=== PATIENT | male | born 1955 | race Caucasian/White ===

== ENCOUNTER 2020-02-04 17:18 | Emergency (ER) | payer BC, MEDICARE, SELFPAY ==
[2020-02-04] VITALS (8 sets, daily range): BP systolic 107–119; BP diastolic 68–75; PULSE 53–65; RESP 20; TEMP 37.2; O2SAT 96–99
--- NOTE | ~2020-02-04 | XR_ITS ---
EXAMINATION: XR chest 2V DATE: 02/04/2020 18:19 INDICATION: Transient alteration of awareness, hypertension TECHNIQUE: PA and lateral views of the chest are obtained. COMPARISON: None available FINDINGS: The lungs are free of acute opacities. There is no pleural effusion or pneumothorax. The ca rdiomediastinal silhouette is normal. There is moderate thoracic spondylosis. IMPRESSION: 1. No acute cardiopulmonary abnormality. Reviewed, dictated and finalized at location A.
--- NOTE | 2020-02-04 17:49 | ECG_ITS ---
Measurements Intervals [place] Rate: 63 P: 91 FL: 177 QRS: -14 QRSD: 126 T: 31 QT: 437 QTc: 448 Interpretive Statements SINUS RHYTHM INTRAVENTRICULAR CONDUCTION DELAY BORDERLINE R WAVE PROGRESSION, ANTERIOR LEADS BASELINE ARTIFACT- I, III, AVL, V5 BORDERLINE ECG Electronically Signed On 02-04-2020 18:57:22 CDT by Aric Schrader D.O.
--- NOTE | 2020-02-04 18:32 | ED.SYNCOPE ---
HPI - Syncope General Chief Complaint: Syncope <Suzanne Daniel PA-C - Last Filed: 02/04/20 20:56> Stated Complaint: syncope ? seizure <CAREY Nicole Last Filed: 02/04/20 20:56> Time Seen by Provider: 02/04/20 18:03 <Suzanne Daniel PA-C - Last Filed: 02/04/20 20:56> Source: patient and family <CAREY iNcole Last Filed: 02/04/20 20:56> Mode of arrival: wheelchair <CAREY Nicole Last Filed: 02/04/20 20:56> Limitations: no limitations <CAREY Nicole Last Filed: 02/04/20 20:56> History of Present Illness HPI narrative: This is a 64 year old male that presents to the ER for syncopal episode today. Reports he had just gotten up from his chair and walked into the kitchen to get a drink. Reports he remembers feeling lightheaded and everything went black. His came in and sat him up. Reports his eyes rolled back in his head and his arms were shaking a little bit. Reports he soon came back to consciousness after. Reports he is currently being treated for a urinary tract infection by Dr. Teran. Denies chest pain, rotations, or shortness of breath. <Suzanne Daniel PA-C - Last Filed: 02/04/20 20:56> Related Data Home Medications: Home Medications Medication Instructions Recorded Confirmed amlodipine 10 mg tablet 10 mg PO DAILY 08/26/19 atorvastatin 80 mg tablet 80 mg PO DAILY 08/26/19 duloxetine 60 mg capsule,delayed 60 mg PO DAILY 08/26/19 release hydrochlorothiazide 12.5 mg capsule 12.5 mg PO DAILY 08/26/19 metaxalone 800 mg tablet 800 mg PO TID 08/26/19 oxycodone-acetaminophen 10 mg-325 1 tablet PO BID PRN tablet 08/26/19 mg tablet pregabalin 150 mg capsule 150 mg PO BID 08/26/19 telmisartan 80 mg tablet 80 mg PO DAILY 08/26/19 oxycodone myristate [Xtampza ER] 27 mg PO BID 02/04/20 <Suzanne Daniel PA-C - Last Filed: 02/04/20 20:56> Allergies/Adverse Reactions: Allergies Allergy/AdvReac Type Severity Reaction Status Date / Time No Known Allergies Allergy Mild Verified 02/04/20 17:40 <Suzanne Daniel PA-C - Last Filed: 02/04/20 20:56> Review of Systems Review of Systems: Narrative: CONSTITUTIONAL: Denies fever CARDIOVASCULAR: Denies chest pain RESPIRATORY: Denies dyspnea. GASTROINTESTINAL: Denies abdominal pain, nausea, vomiting GENITOURINARY: Reports dysuria. Denies hematuria. MUSCULOSKELETAL: Reports back pain. Denies joint pain, or myalgia. NEUROLOGIC: Denies numbness, or weakness. <Suzanne Daniel PA-C - Last Filed: 02/04/20 20:56> All systems reviewed & are unremarkable except as noted in HPI and below <Suzanne Daniel PA-C - Last Filed: 02/04/20 20:56> PMFSH Past Medical History Medical History: Medical History (Updated 02/04/20 @ 20:55 by Suzanne Daneil PA-C) Benign essential hypertension Chronic low back pain Mixed hyperlipidemia <Suzanne Daniel PA-C - Last Filed: 02/04/20 20:56> Social History Social History: Social History Smoking status: Never smoker Alcohol intake: never Gender identity (if verbalized by the patient): Male <Suzanne Daniel PA-C - Last Filed: 02/04/20 20:56> Exam Narrative: Exam Narrative: GENERAL: Well-appearing, well-nourished, and in no acute distress. HEAD: Normocephalic, atraumatic. EYES: PERRLA and EOMI. ENT: Nares clear, no rhinorrhea or epistaxis. Mucous membranes moist. Oropharynx without tonsillar hypertrophy exudate or other lesions. Bilateral TMs pearly way non-bulging NECK: Supple. No adenopathy or masses. No midline spinal tenderness CHEST: Clear to auscultation. No respiratory distress. No wheezes rales or rhonchi HEART: Regular rate and rhythm. No murmur heard. Normal peripheral pulses. BACK: No midline spinal tenderness EXTREMITIES: Normal range of motion. No edema. Strength equal in bilateral upper and lower extremities (5/5) SKIN: Warm, dry, no rash. NEURO:
[2020-02-04 18:34] LABS: Basophils Percent Auto 0.3 % (0.2-1.2); Eosinophils Absolute Auto 0.1 K/mm3 (0-0.3); Eosinophils Percent Auto 1.2 % (0-4.4); Hematocrit 42.3 % (42.0-52.0); Hemoglobin 13.8 g/dL (14.0-18.0); Immature Granulocyte Absolute 0.04 K/mm3 (0.00-0.031); Immature Granulocyte Percent A 0.4 % (0-0.5); Immature Platelet Fraction Pct 5.8 % (0.9-11.2); Lymphocytes Absolute Auto 0.74 K/mm3 (0.9-3.2); Mean Corpuscular HGB Conc 32.6 g/dl (32-36); Mean Corpuscular Hemoglobin 30.1 pg (26-34); Mean Corpuscular Volume 92.2 fl (80-100); Mean Platelet Volume 11.4 fl (7.4-10.4); Monocytes Absolute Auto 0.7 K/mm3 (0.1-0.6); Monocytes Percent Auto 6.6 % (2.6-8.5); Neutrophils Absolute Auto 8.9 K/mm3 (1.3-6.7); Neutrophils Percent Auto 84.5 % (45.5-73.1); Platelet Count Result 141 k/mm3 (150-375); Red Blood Count 4.59 M/mm3 (4.6-6.20); Red Cell Distribution Width 12.5 % (11.5-14.5); White Blood Count 10.5 K/mm3 (4.5-10.0)
[2020-02-04 18:44] LABS: Blood Urea Nitrogen 21 mg/dL (9-20); Calcium 8.9 mg/dL (8.4-10.2); Carbon Dioxide 31 mmol/L (22-30); Chloride 101 mmol/L (98-107); Estimated CRCL calculation 86 ml/min; Estimated Glomerular Filt Rate > 60; Glucose 113 mg/dL (75-110); Potassium 3.6 mmol/L (3.4-5.0); Sodium 137 mmol/L (137-145)
[2020-02-04 18:56] LABS: Troponin I < 0.012 ng/mL (0.000-0.034)
[2020-02-04] MEDS: SODIUM CHLORIDE 0.9% IV 1,000 ML 999 ML IV CONT (19:29)
[2020-02-04 19:47] LABS: Add Urine Microscopic? YES; Appearance Urine Clear (Clear); Bilirubin Urine Negative (Negative); Blood Urine Negative (Negative); Color Urine Yellow (Yellow); Glucose Urine UA Negative (Negative); Ketones Urine Negative (Negative); Leukocyte Esterase Ur Trace LEU/UL (Negative); Mucus Urine Rare /lpf; Nitrate Urine Negative (Negative); Protein Urine 1+ mg/dL (Negative); RBC Urine 0-2 /hpf (0-2); Specific Grav Ur 1.018 (1.001-1.035); Squamous Epithelial Cell Urine Rare /hpf (Few); Urobilinogen Urine Negative mg/dL (<2.0); WBC Urine 0-3 /hpf
== END 2020-02-04 21:42 | disposition home or self-care (01) ==
PROVIDERS: Physician Assistant; Emergency Provider Emergency Medicine; PCP Family Medicine
DX: R55 Syncope and collapse (principal); I10 Essential (primary) hypertension; M54.5 Low back pain; G89.29 Other chronic pain; E78.5 Hyperlipidemia, unspecified
CPT/HCPCS: 36415; 71046; 80048; 81001; 84484; 85025; 85055; 93005; 96360; 96361; 99284; J7030

== ENCOUNTER 2020-06-22 02:35 | Outpatient (CLI) | payer BC, MEDICARE, SELFPAY ==
[2020-06-22 21:22] LABS: SARS-CoV-2 RNA PCR Negative
== END 2020-06-22 02:36 | disposition home or self-care (01) ==
LOC: ANHCOVIDDT 02:36
PROVIDERS: PCP Family Medicine; Visit Provider Internal Medicine Gastroenterology
DX: Z01.818 Encounter for other preprocedural examination (principal); Z20.828 Contact with and (suspected) exposure to other viral communicable diseases
CPT/HCPCS: 87635; C9803; U0003

== ENCOUNTER 2020-06-25 00:30 | Day surgery (SDC) | payer BC, MEDICARE, SELFPAY ==
[2020-06-18 14:51] VITALS: BMI 29.7
[2020-06-25 11:53] VITALS: BP 136/79; PULSE 56; RESP 14; TEMP 36.6; O2SAT 98; BMI 30.1
[2020-06-25] MEDS: LACTATED RINGERS 1,000 ML 150 ML IV CONT (12:03)
--- NOTE | 2020-06-25 12:37 | WPDANESEPPF ---
Anes - Initial Pre Proc Eval Procedure: Operation Date: 06/25/20 13:00 Proposed Procedures p Esophagogastroduodenoscopy - Aniket Long DO Date/Time: 06/25/20 12:37 Surgeon: Aniket Long DO Pre Op Diagnosis: Nausea,Weight Loss, Anorexia Patient Data Age: 65 Gender: M Height: 6 ft 3 in Weight: 109.3 kg Last Vital Signs Temp 97.9 F 06/25/20 11:53 Pulse 56 L 06/25/20 11:53 Resp 14 06/25/20 11:53 BP 136/79 06/25/20 11:53 Pulse Ox 98 06/25/20 11:53 Allergies Allergy/AdvReac Type Severity Reaction Status Date / Time No Known Allergies Allergy Mild Verified 06/25/20 11:51 Home Medications Medication Instructions Recorded Confirmed Type atorvastatin 80 mg tablet 80 mg PO DAILY 08/26/19 06/25/20 History duloxetine 60 mg capsule,delayed 80 mg PO DAILY 08/26/19 06/25/20 History release metaxalone 800 mg tablet 800 mg PO TID 08/26/19 06/25/20 History oxycodone-acetaminophen 10 mg-325 1 tablet PO BID PRN tablet 08/26/19 06/25/20 History mg tablet oxycodone myristate [Xtampza ER] 7.5 mg PO QID 02/04/20 06/25/20 History amlodipine 10 mg tablet 5 mg PO DAILY tablet 05/19/20 06/25/20 History pregabalin 150 mg capsule 150 mg PO BID cap 05/19/20 06/25/20 History tamsulosin 0.4 mg capsule 0.4 mg PO DAILY 05/19/20 06/25/20 History mirabegron [Myrbetriq] 25 mg PO DAILY 06/18/20 06/25/20 History omeprazole 40 mg PO BID 06/18/20 06/25/20 History Patient hx anesthesia problems: none Family hx anesthesia problems: none PMFSH Past Medical History Medical History Benign essential hypertension BMI 31.0-31.9,adult Chronic low back pain Mixed hyperlipidemia Family History Family History Sibling Family history of schizophrenia Family history of suicide Father Hypertension Family history of diabetes mellitus in first degree relative Family history of heart disease in male family member before age 55 Family history of type 2 diabetes mellitus Diabetes mellitus Mother Hypertension Social History Social History Years smoked: 1 Smoking status: Former smoker Alcohol intake: never Substance use type: marijuana Living arrangements: with family Gender identity (if verbalized by the patient): Male Spiritual care concerns: No Anes - Eval Final PreProcedure Day of Procedure 06/25/20 12:37 Patient weight: overweight Heart: regular rate and rhythm Lungs: clear to auscultation Airway: Mallampati scale class II Neurological: alert and oriented Last oral intake: >/= 8 hours ASA classification: III Emergent: no Anesthetic plan: proceed Anesthesia type and monitoring: general GIVS and standard monitoring Informed Consent: The patient's anesthetic plan and its attendant risks and benefits were discussed with the patient/family/POA. Questions were solicited and answers provided to the satisfaction of the patient/family/POA.
--- NOTE | 2020-06-25 12:43 | PM.IMHP ---
H&P: HPI History of Present Illness Date/Time: 06/25/20 12:43 Chief complaint: Nausea,Weight Loss, Anorexia Narrative: Reason for visit EGD. This very pleasant gentleman seen in consultation the request of the primary physician. Impression: Here of very pleasant gentleman with some mild nausea, anorexia, early satiety and weight loss underlying peptic ulcer disease in neoplastic disease should be excluded. CAD status post stent placement x1. Complex regional pain syndrome. BPH. HTN. HLD. Recommendation: EGD Colonoscopy scheduled. History: Very pleasant gentleman is being evaluated for 7 months of 35 lb weight loss. He has anorexia and early satiety. He denies any vomiting, indigestion or heartburn. He has had omeprazole to settle his stomach. He also takes medical cannabis regularly for the last year. Denies any constipation, diarrhea, hematochezia, melena or acholic stools. He is here for EGD. Physical examination: General: very pleasant patient in no acute distress. HEENT: Head was normocephalic sclerae is clear mouth without masses neck was supple. Heart: Rate rhythm regular without S3 or S4. Lungs: CTA. Abdomen: Soft with no guarding or rigidity. Bowel sounds were active. Neurologic: Cranial nerves 2 through 12 intact. No focal defects. No clonus. Musculoskeletal system: Revealed no joint tenderness or swelling no muscle atrophy. Extremities: Reveal no significant edema. Skin: Warm and dry with normal turgor. Mental status: intact. Patient is alert and oriented. Review of Systems Review of Systems: All systems reviewed & are unremarkable except as noted in HPI and below PMFSH Past Medical History Medical History Benign essential hypertension BMI 31.0-31.9,adult Chronic low back pain Mixed hyperlipidemia Family History Family History Sibling Family history of schizophrenia Family history of suicide Father Hypertension Family history of diabetes mellitus in first degree relative Family history of heart disease in male family member before age 55 Family history of type 2 diabetes mellitus Diabetes mellitus Mother Hypertension Social History Social History Years smoked: 1 Smoking status: Former smoker Alcohol intake: never Substance use type: marijuana Living arrangements: with family Gender identity (if verbalized by the patient): Male Spiritual care concerns: No Meds Home Medications and Allergies Home Medications Medication Instructions Recorded Confirmed Type atorvastatin 80 mg tablet 80 mg PO DAILY 08/26/19 06/25/20 History duloxetine 60 mg capsule,delayed 80 mg PO DAILY 08/26/19 06/25/20 History release metaxalone 800 mg tablet 800 mg PO TID 08/26/19 06/25/20 History oxycodone-acetaminophen 10 mg-325 1 tablet PO BID PRN tablet 08/26/19 06/25/20 History mg tablet oxycodone myristate [Xtampza ER] 7.5 mg PO QID 02/04/20 06/25/20 History amlodipine 10 mg tablet 5 mg PO DAILY tablet 05/19/20 06/25/20 History pregabalin 150 mg capsule 150 mg PO BID cap 05/19/20 06/25/20 History tamsulosin 0.4 mg capsule 0.4 mg PO DAILY 05/19/20 06/25/20 History mirabegron [Myrbetriq] 25 mg PO DAILY 06/18/20 06/25/20 History omeprazole 40 mg PO BID 06/18/20 06/25/20 History Allergies Allergy/AdvReac Type Severity Reaction Status Date / Time No Known Allergies Allergy Mild Verified 06/25/20 11:51 Vital Signs Vital Signs - 24 hr 06/25/20 11:53 Temperature 36.6 C Pulse Rate 56 L Respiratory Rate 14 Blood Pressure 136/79 Pulse Oximetry 98
[2020-06-25 13:00] VITALS: BP 114/76; PULSE 56; RESP 17; O2SAT 98
[2020-06-25 13:10] VITALS: BP 130/80; PULSE 57; RESP 21; O2SAT 100
[2020-06-25 13:20] VITALS: BP 152/83; PULSE 53; RESP 19; O2SAT 98
== END 2020-06-25 13:29 | disposition home or self-care (01) ==
PROVIDERS: PCP Family Medicine; Visit Provider Internal Medicine Gastroenterology
PROC: 0DJ08ZZ Inspection of Upper Intestinal Tract, Via Natural or Artificial Opening Endoscopic (ICD-10-PCS; CPT 43235; principal; 2020-06-25 13:00)
DX: R11.0 Nausea (principal); R63.0 Anorexia; R68.81 Early satiety; R63.4 Abnormal weight loss; K31.7 Polyp of stomach and duodenum; K20.90 Esophagitis, unspecified without bleeding; I10 Essential (primary) hypertension; E78.2 Mixed hyperlipidemia; Z87.891 Personal history of nicotine dependence
CPT/HCPCS: 43239; 87081; 88305; J2704; J7120

== ENCOUNTER 2020-07-07 02:33 | Outpatient (CLI) | payer BC, MEDICARE, SELFPAY ==
[2020-07-07 19:16] LABS: SARS-CoV-2 RNA PCR Negative
== END 2020-07-07 02:34 | disposition home or self-care (01) ==
LOC: ANHCOVIDDT 02:33
PROVIDERS: PCP Family Medicine; Visit Provider Internal Medicine Gastroenterology
DX: Z01.818 Encounter for other preprocedural examination (principal); Z20.828 Contact with and (suspected) exposure to other viral communicable diseases
CPT/HCPCS: 87635; C9803; U0003

== ENCOUNTER 2020-07-09 00:54 | Day surgery (SDC) | payer BC, MEDICARE, SELFPAY ==
[2020-07-01 11:35] VITALS: BMI 30.1
[2020-07-09 14:40] VITALS: BP 169/101; PULSE 80; RESP 16; TEMP 36.7; O2SAT 96
[2020-07-09] MEDS: LACTATED RINGERS 1,000 ML 150 ML IV CONT (14:47)
--- NOTE | 2020-07-09 15:00 | WPDANESEPPF ---
Anes - Initial Pre Proc Eval Procedure: Operation Date: 07/09/20 11:30 Proposed Procedures p Colonoscopy - Aamir Ngo MD Date/Time: 07/09/20 15:00 Surgeon: Aamir Ngo MD Pre Op Diagnosis: Weight Loss Patient Data Age: 65 Gender: M Height: 6 ft 3 in Weight: 107.4 kg Last Vital Signs Temp 98.0 F 07/09/20 14:40 Pulse 80 07/09/20 14:40 Resp 16 07/09/20 14:40 BP 169/101 H 07/09/20 14:40 Pulse Ox 96 07/09/20 14:40 Allergies Allergy/AdvReac Type Severity Reaction Status Date / Time No Known Allergies Allergy Mild Verified 07/01/20 11:34 Home Medications Medication Instructions Recorded Confirmed Type atorvastatin 80 mg tablet 80 mg PO DAILY 08/26/19 07/01/20 History duloxetine 60 mg capsule,delayed 80 mg PO DAILY 08/26/19 07/01/20 History release metaxalone 800 mg tablet 800 mg PO TID 08/26/19 07/01/20 History oxycodone-acetaminophen 10 mg-325 1 tablet PO BID PRN tablet 08/26/19 07/01/20 History mg tablet oxycodone myristate [Xtampza ER] 7.5 mg PO QID 02/04/20 07/01/20 History amlodipine 10 mg tablet 5 mg PO DAILY tablet 05/19/20 07/01/20 History pregabalin 150 mg capsule 150 mg PO BID cap 05/19/20 07/01/20 History tamsulosin 0.4 mg capsule 0.4 mg PO DAILY 05/19/20 07/01/20 History mirabegron [Myrbetriq] 25 mg PO DAILY 06/18/20 07/01/20 History omeprazole 40 mg PO BID 06/18/20 07/01/20 History Patient hx anesthesia problems: none Family hx anesthesia problems: none PMFSH Past Medical History Medical History Benign essential hypertension BMI 31.0-31.9,adult Chronic low back pain Mixed hyperlipidemia Family History Family History Sibling Family history of schizophrenia Family history of suicide Father Hypertension Family history of diabetes mellitus in first degree relative Family history of heart disease in male family member before age 55 Family history of type 2 diabetes mellitus Diabetes mellitus Mother Hypertension Social History Social History Years smoked: 1 Smoking status: Former smoker Tobacco type: cigarettes Alcohol intake: never Substance use: current Substance use type: marijuana Living arrangements: with family Gender identity (if verbalized by the patient): Male Spiritual care concerns: No Anes - Eval Final PreProcedure Day of Procedure 07/09/20 15:00 Patient weight: normal Heart: regular rate and rhythm Lungs: clear to auscultation Airway: Mallampati scale class II Neurological: alert and oriented Last oral intake: >/= 8 hours ASA classification: III Emergent: no Anesthetic plan: proceed Anesthesia type and monitoring: general GIVS and standard monitoring Informed Consent: The patient's anesthetic plan and its attendant risks and benefits were discussed with the patient/family/POA. Questions were solicited and answers provided to the satisfaction of the patient/family/POA.
--- NOTE | 2020-07-09 15:26 | PM.HPGS ---
History of Present Illness History of Present Illness Consent: Risks, benefits, and alternatives have been discussed and questions answered. Patient agrees to proceed with procedure. Chief complaint: Weight Loss Narrative: Sunil Milian is a 65 year old male here for screening colonoscopy, last one 10 years ago. Had recent EGD by Dr Long, also CT scan as outpatient because some weight loss Review of Systems Constitutional: Constitutional: Denies headache(s) and Denies weakness Eyes: Eyes: Denies blurry vision ENT: Reports Normal hearing present, Denies headache(s) and Denies neck pain Cardiovascular: Cardiovascular: Denies chest pain and Denies dyspnea Respiratory: Respiratory: Denies dyspnea Gastrointestinal: Gastrointestinal: Reports no additional gastrointestinal complaints Genitourinary: Genitourinary: Denies dysuria Musculoskeletal: Musculoskeletal: Denies neck pain Integumentary/Breasts: Skin/Breast: Denies dry skin Neurologic: Reports Normal hearing present, Denies headache(s) and Denies weakness Psychiatric: Psychiatric: Denies anxiety Endocrine: Endocrine: Denies change in body appearance Hematologic/Lymphatic: Hematologic/Lymphatic: Denies easy bleeding Allergic/Immunologic: Allergic/Immunologic: Denies urticaria PMFSH Past Medical History Medical History Benign essential hypertension BMI 31.0-31.9,adult Chronic low back pain Mixed hyperlipidemia Family History Family History Sibling Family history of schizophrenia Family history of suicide Father Hypertension Family history of diabetes mellitus in first degree relative Family history of heart disease in male family member before age 55 Family history of type 2 diabetes mellitus Diabetes mellitus Mother Hypertension Social History Social History Years smoked: 1 Smoking status: Former smoker Tobacco type: cigarettes Alcohol intake: never Substance use: current Substance use type: marijuana Living arrangements: with family Gender identity (if verbalized by the patient): Male Spiritual care concerns: No Meds Home Medications and Allergies Home Medications Medication Instructions Recorded Confirmed Type atorvastatin 80 mg tablet 80 mg PO DAILY 08/26/19 07/01/20 History duloxetine 60 mg capsule,delayed 80 mg PO DAILY 08/26/19 07/01/20 History release metaxalone 800 mg tablet 800 mg PO TID 08/26/19 07/01/20 History oxycodone-acetaminophen 10 mg-325 1 tablet PO BID PRN tablet 08/26/19 07/01/20 History mg tablet oxycodone myristate [Xtampza ER] 7.5 mg PO QID 02/04/20 07/01/20 History amlodipine 10 mg tablet 5 mg PO DAILY tablet 05/19/20 07/01/20 History pregabalin 150 mg capsule 150 mg PO BID cap 05/19/20 07/01/20 History tamsulosin 0.4 mg capsule 0.4 mg PO DAILY 05/19/20 07/01/20 History mirabegron [Myrbetriq] 25 mg PO DAILY 06/18/20 07/01/20 History omeprazole 40 mg PO BID 06/18/20 07/01/20 History Allergies Allergy/AdvReac Type Severity Reaction Status Date / Time No Known Allergies Allergy Mild Verified 07/01/20 11:34 Vital Signs Vital Signs - 24 hr 07/09/20 14:40 Temperature 98.0 F Pulse Rate 80 Respiratory Rate 16 Blood Pressure 169/101 H Pulse Oximetry 96 Exam Const: General: comfortable and no acute distress HENMT: General nose exam: Normal nares present Eyes: General: appearance normal, both eyes and all related structures Neck: Neck: no JVD Resp: Auscultation: clear to auscultation bilaterally Cardio: Rate: regular rate Rhythm: regular rhythm GI: Inspection: non-distended GI Palp: Yes Soft to palpation Skin: General skin exam: normal color Neuro: General: gait normal Speech: normal speech Extrem: General: normal to inspection Psych: Mental Status: mental status grossly normal Assessment an
[2020-07-09 16:02] VITALS: BP 124/78; PULSE 62; RESP 19; O2SAT 99
[2020-07-09 16:12] VITALS: BP 130/88; PULSE 57; RESP 15; O2SAT 99
[2020-07-09 16:22] VITALS: BP 130/85; PULSE 60; RESP 16; O2SAT 98
== END 2020-07-09 16:33 | disposition home or self-care (01) ==
PROVIDERS: PCP Family Medicine; Visit Provider Internal Medicine Gastroenterology
PROC: 0DJD8ZZ Inspection of Lower Intestinal Tract, Via Natural or Artificial Opening Endoscopic (ICD-10-PCS; CPT 45378; principal; 2020-07-09 11:30)
DX: Z12.11 Encounter for screening for malignant neoplasm of colon (principal); D12.3 Benign neoplasm of transverse colon; D12.4 Benign neoplasm of descending colon; K63.5 Polyp of colon; K64.8 Other hemorrhoids; I10 Essential (primary) hypertension; E78.2 Mixed hyperlipidemia; G89.29 Other chronic pain; M54.5 Low back pain; Z79.891 Long term (current) use of opiate analgesic; Z87.891 Personal history of nicotine dependence; F12.90 Cannabis use, unspecified, uncomplicated
CPT/HCPCS: 45380; 45385; 88305; J2704; J7120

== ENCOUNTER 2020-07-14 11:48 | Outpatient (CLI) | payer BC, MEDICARE, SELFPAY ==
--- NOTE | ~2020-07-14 | CT_ITS ---
EXAMINATION: CT abdomen pelvis w con DATE: 07/14/2020 12:13 INDICATION: Unspecified abdominal pain. TECHNIQUE: Computed tomography (CT) of the abdomen and pelvis was performed with 100 mL Omnipaque 350 intravenous contrast. Automated exposure control and iterative reconstruction technique were employe d. The dose-length product was 1197.98 mGy-cm. COMPARISON: CT abdomen and pelvis 03/27/2019 FINDINGS: The visualized portions of the lung bases are clear without pneumonia or pleural effusion. The heart size is normal. No pericardial effusion. There are coronary artery calcifications. There is a small sliding hiatal hernia. The liver, spleen, gallbladder, pancreas, and adrenal glands are norm al. There are cysts in right kidney measuring up to 19 mm. There is a 3 mm stone in right kidney. The re are 5 stones in left kidney measuring up to 4 mm. There is diffuse bladder wall thickening, likely secondary to chronic outlet obstruction from the mildly enlarged prostate. There is diverticulosis o f the colon without evidence of diverticulitis. There are no dilated loops of bowel. The appendix is normal. There is an umbilical hernia containing fat. There are no pathologically enlarged lymph nodes . There is no free intraperitoneal fluid. There is a small right inguinal hernia containing fat. Ther e are changes of anterior fusion procedure at L5-S1. There is mild thoracolumbar spondylosis. IMPRESSION: 1. Umbilical hernia and right inguinal hernia containing fat. 2. Nonobstructing bilateral kidney stones. 3. Small sliding hiatal hernia. Reviewed, dictated and finalized at location B. GAN CLERK
[2020-07-14 12:07] LABS: Estimated Glomerular Filt Rate > 60
== END 2020-07-14 11:49 | disposition home or self-care (01) ==
PROVIDERS: PCP Family Medicine; Visit Provider Nurse Practitioner Family
DX: K42.9 Umbilical hernia without obstruction or gangrene (principal); N20.0 Calculus of kidney; K44.9 Diaphragmatic hernia without obstruction or gangrene
CPT/HCPCS: 74177; Q9967

== ENCOUNTER 2020-07-14 13:27 | Outpatient (CLI) | payer BC, MEDICARE, SELFPAY ==
[2020-07-14 13:51] LABS: Basophils Percent Auto 0.3 % (0.2-1.2); Eosinophils Absolute Auto 0.2 K/mm3 (0-0.3); Eosinophils Percent Auto 2.1 % (0-4.4); Hematocrit 45.7 % (42.0-52.0); Hemoglobin 15.2 g/dL (14.0-18.0); Immature Granulocyte Absolute 0.03 K/mm3 (0.00-0.031); Immature Granulocyte Percent A 0.3 % (0-0.5); Lymphocytes Absolute Auto 1.38 K/mm3 (0.9-3.2); Lymphocytes Percent Auto 13.7 % (18.3-44.2); Mean Corpuscular HGB Conc 33.3 g/dl (32-36); Mean Corpuscular Hemoglobin 31.1 pg (26-34); Mean Corpuscular Volume 93.6 fl (80-100); Monocytes Absolute Auto 0.6 K/mm3 (0.1-0.6); Monocytes Percent Auto 5.8 % (2.6-8.5); Neutrophils Absolute Auto 7.8 K/mm3 (1.3-6.7); Neutrophils Percent Auto 77.8 % (45.5-73.1); Platelet Count Result 162 k/mm3 (150-375); Red Blood Count 4.88 M/mm3 (4.6-6.20); Red Cell Distribution Width 13.2 % (11.5-14.5)
[2020-07-14 14:04] LABS: Alanine Aminotransferase 27 U/L (4-50); Albumin Level 4.3 g/dL (3.5-5.1); Alkaline Phosphatase 67 U/L (38-126); Anion Gap 5 mmol/L (8-16); Aspartate Amino Transferase 34 U/L (17-59); Bilirubin,Total 0.6 mg/dL (0.2-1.3); Blood Urea Nitrogen 15 mg/dL (9-20); Calcium 9.5 mg/dL (8.4-10.2); Carbon Dioxide 32 mmol/L (22-30); Chloride 104 mmol/L (98-107); Estimated Glomerular Filt Rate > 60; Glucose 91 mg/dL (75-110); Potassium 4.2 mmol/L (3.4-5.0); Sodium 141 mmol/L (137-145)
== END 2020-07-14 13:28 | disposition home or self-care (01) ==
LOC: ANHLAB 13:29
PROVIDERS: PCP Family Medicine; Visit Provider Nurse Practitioner Family
DX: K42.9 Umbilical hernia without obstruction or gangrene (principal); R10.9 Unspecified abdominal pain
CPT/HCPCS: 36415; 80053; 85025

== ENCOUNTER 2020-07-24 09:10 | Outpatient (CLI) | payer BC, MEDICARE, SELFPAY ==
[2020-07-24 10:31] LABS: CRP < 0.5 mg/dL (<1.0)
[2020-07-24 10:35] LABS: Complement C3 107 mg/dL (88-165); Rheumatoid Factor < 8.6 IU/ML (<12)
[2020-07-24 10:58] LABS: Erythrocyte Sedimentation Rate 10 mm/hr (0-20)
[2020-07-28 18:09] LABS: Albumin 4.1 g/dL (3.8-4.8); Alpha 1 Globulin 0.2 g/dL (0.2-0.3); Alpha 2 Globulin 0.6 g/dL (0.5-0.9); Beta 1 Globulin 0.4 g/dL (0.4-0.6); Gamma Globulin 0.9 g/dL (0.8-1.7); Protein, Total 6.6 g/dL (6.1-8.1)
[2020-07-28 20:50] LABS: ANCA Screen Negative (Negative)
[2020-07-29 12:00] LABS: RNP Antibodies <1.0; SS-A <1.0; SS-B <1.0
[2020-07-29 22:00] LABS: Actin Antibody (IgG) <20 U (<20)
[2020-07-30 03:40] LABS: Cryoglobulin, QL Negative (Negative)
== END 2020-07-24 09:11 | disposition home or self-care (01) ==
PROVIDERS: PCP Family Medicine
DX: G90.59 Complex regional pain syndrome I of other specified site (principal); G60.9 Hereditary and idiopathic neuropathy, unspecified
CPT/HCPCS: 36415; 82595; 83516; 83519; 84155; 84165; 85652; 86021; 86140; 86160; 86225; 86235; 86255; 86430

== ENCOUNTER 2020-08-05 11:21 | Outpatient (NON) | payer BC, MEDICARE, SELFPAY ==
[2020-08-11 23:46] LABS: Creatinine, 24 Hr Urine 1.81 g/24 h (0.50-2.15); Total Protein/Creatinine Ratio 55 mg/g creat (<115)
== END 2020-08-05 11:22 ==
LOC: ANHLAB 11:25
PROVIDERS: PCP Family Medicine
DX: G90.59 Complex regional pain syndrome I of other specified site (principal); G60.9 Hereditary and idiopathic neuropathy, unspecified
CPT/HCPCS: 81050; 82570; 84156; 84166

== ENCOUNTER 2020-08-05 11:36 | Outpatient (CLI) | payer BC, MEDICARE, SELFPAY | END 2020-08-05 11:37 | disposition home or self-care (01) | LOC: ANHSURGERY 11:40 | PROVIDERS: PCP Family Medicine; Visit Provider Surgery | DX: Z01.818 Encounter for other preprocedural examination (principal); K42.9 Umbilical hernia without obstruction or gangrene | CPT/HCPCS: 36415; 86850; 86900; 86901 ==

== ENCOUNTER 2020-08-08 02:04 | Outpatient (CLI) | payer BC, MEDICARE, SELFPAY ==
[2020-08-08 20:08] LABS: SARS-CoV-2 RNA PCR Negative
== END 2020-08-08 02:05 | disposition home or self-care (01) ==
LOC: ANHCOVIDDT 02:05
PROVIDERS: PCP Family Medicine; Visit Provider Surgery
DX: Z01.818 Encounter for other preprocedural examination (principal); Z20.828 Contact with and (suspected) exposure to other viral communicable diseases
CPT/HCPCS: C9803; U0003

== ENCOUNTER 2020-08-11 01:40 | Day surgery (SDC) | payer BC, MEDICARE, SELFPAY ==
[2020-08-04 12:56] VITALS: BMI 29.7
--- NOTE | 2020-08-10 10:22 | WPDANESEPPF ---
Anes - Initial Pre Proc Eval Procedure: Operation Date: 08/11/20 09:30 Proposed Procedures p Laparoscopic Umbilical Hernia Repair With Mesh, Davinci Assisted - Sunil Valera DO Date/Time: 08/10/20 10:22 Surgeon: Sunil Valera DO Pre Op Diagnosis: Umbilical Hernia Patient Data Age: 65 Gender: M Height: 1.91 m Weight: 108 kg Allergies Allergy/AdvReac Type Severity Reaction Status Date / Time No Known Allergies Allergy Mild Verified 08/04/20 12:47 Home Medications Medication Instructions Recorded Confirmed Type atorvastatin 80 mg tablet 80 mg PO HS 08/26/19 08/04/20 History duloxetine 60 mg capsule,delayed 80 mg PO HS 08/26/19 08/04/20 History release metaxalone 800 mg tablet 800 mg PO TID PRN 08/26/19 08/04/20 History oxycodone-acetaminophen 10 mg-325 1 tablet PO Q6-8H PRN tablet 08/26/19 08/04/20 History mg tablet amlodipine 10 mg tablet 5 mg PO QAM tablet 05/19/20 08/04/20 History pregabalin 150 mg capsule 150 mg PO BID cap 05/19/20 08/04/20 History tamsulosin 0.4 mg capsule 0.4 mg PO HS 05/19/20 08/04/20 History mirabegron [Myrbetriq] 25 mg PO HS 06/18/20 08/04/20 History omeprazole 40 mg PO BID PRN 06/18/20 08/04/20 History aspirin [Aspir-81] 81 mg PO QAM 08/04/20 08/04/20 History duloxetine 20 mg PO QACLUNCH 08/04/20 08/04/20 History Patient hx anesthesia problems: none Family hx anesthesia problems: none PMFSH Past Medical History Medical History (Updated 08/10/20 @ 10:23 by Sonido Galloway DO) Benign essential hypertension BMI 29.0-29.9,adult BMI 31.0-31.9,adult CAD (coronary artery disease) Chronic low back pain Chronic, continuous use of opioids CRPS (complex regional pain syndrome) Heart disease History of kidney stones Mixed hyperlipidemia Surgical History Surgical History (Updated 08/10/20 @ 10:23 by Sonido Galloway DO) History of back surgery History of coronary artery stent placement 1997 History of foot surgery left foot Family History Family History Sibling Family history of schizophrenia Family history of suicide Diabetes mellitus Father Hypertension Family history of diabetes mellitus in first degree relative Family history of heart disease in male family member before age 55 Family history of type 2 diabetes mellitus Diabetes mellitus Mother Hypertension Social History Social History Smoking packs per day: 1 Smoking cigarettes per day: 20.0 Years smoked: 1 Smoking pack-years: 1.00 Smoking status: Never smoker Tobacco type: cigarettes Alcohol intake: former Alcohol use details: SOCIAL DRINKER, NONE RECENTLY Substance use: current Substance use type: marijuana Other substance usage details: MEDICAL MARIJUANA SEVERAL TIMES/DAY FOR NERVE PAIN Living arrangements: with family 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 Questions were solicited and answers provided to the satisfaction of the patient/family/POA.
[2020-08-11] VITALS (7 sets, daily range): BP systolic 136–153; BP diastolic 81–93; PULSE 60–69; RESP 11–20; TEMP 36.1–37.4; O2SAT 98–100; BMI 28.9
[2020-08-11] MEDS: LACTATED RINGERS 1,000 ML 30 ML IV CONT ×2 (08:42→13:30)
[2020-08-11] MEDS: ACETAMINOPHEN 500 MG TABLET 1000 MG PO (08:44)
[2020-08-11] MEDS: KETOROLAC 15 MG/ML VIAL (*BKC) IV PUSH (08:44)
--- NOTE | 2020-08-11 10:46 | WPDHPUPDATE1 ---
History and Physical Update Update Date/Time: 08/11/20 10:46 History and Physical has been reviewed, including an updated exam of the patient. There are NO changes in the patient's condition. Risks, benefits, and alternatives have been discussed and questions answered. Patient agrees to proceed with procedure.
--- NOTE | 2020-08-11 10:57 | PM.IMHP ---
H&P: HPI History of Present Illness Date/Time: 08/11/20 10:57 Chief Complaint: right groin pain, periumbilical pain Narrative: Sunil Milian is a 65 year old male who presents for umbilical hernia repair. He states that he is now having more right inguinal pain along with the periumbilical pain. He had a previous CT which showed evidence of a right inguinal hernia and periumbilical hernia. Review of Systems Review of Systems: All systems reviewed & are unremarkable except as noted in HPI and below PMFSH Past Medical History Medical History Benign essential hypertension BMI 29.0-29.9,adult BMI 31.0-31.9,adult CAD (coronary artery disease) Chronic low back pain Chronic, continuous use of opioids CRPS (complex regional pain syndrome) Heart disease History of kidney stones Mixed hyperlipidemia Surgical History Surgical History History of back surgery History of coronary artery stent placement 1997 History of foot surgery left foot Family History Family History Sibling Family history of schizophrenia Family history of suicide Diabetes mellitus Father Hypertension Family history of diabetes mellitus in first degree relative Family history of heart disease in male family member before age 55 Family history of type 2 diabetes mellitus Diabetes mellitus Mother Hypertension Social History Social History Smoking packs per day: 1 Smoking cigarettes per day: 20.0 Years smoked: 1 Smoking pack-years: 1.00 Smoking status: Never smoker Tobacco type: cigarettes Alcohol intake: former Alcohol use details: SOCIAL DRINKER, NONE RECENTLY Substance use: current Substance use type: marijuana Other substance usage details: MEDICAL MARIJUANA SEVERAL TIMES/DAY FOR NERVE PAIN Living arrangements: with family 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 Gender identity (if verbalized by the patient): Male Spiritual care concerns: No Meds Home Medications and Allergies Home Medications Medication Instructions Recorded Confirmed Type atorvastatin 80 mg tablet 80 mg PO HS 08/26/19 08/04/20 History duloxetine 60 mg capsule,delayed 80 mg PO HS 08/26/19 08/04/20 History release metaxalone 800 mg tablet 800 mg PO TID PRN 08/26/19 08/04/20 History oxycodone-acetaminophen 10 mg-325 1 tablet PO Q6-8H PRN tablet 08/26/19 08/04/20 History mg tablet amlodipine 10 mg tablet 5 mg PO QAM tablet 05/19/20 08/04/20 History pregabalin 150 mg capsule 150 mg PO BID cap 05/19/20 08/04/20 History tamsulosin 0.4 mg capsule 0.4 mg PO HS 05/19/20 08/04/20 History mirabegron [Myrbetriq] 25 mg PO HS 06/18/20 08/04/20 History omeprazole 40 mg PO BID PRN 06/18/20 08/04/20 History aspirin [Aspir-81] 81 mg PO QAM 08/04/20 08/04/20 History duloxetine 20 mg PO QACLUNCH 08/04/20 08/04/20 History Allergies Allergy/AdvReac Type Severity Reaction Status Date / Time No Known Allergies Allergy Mild Verified 08/04/20 12:47 Vital Signs Vital Signs - 24 hr 08/11/20 09:35 Temperature 37.4 C Pulse Rate 64 Respiratory Rate 14 Blood Pressure 142/81 H Pulse Oximetry 99 Exam GI: GI Palp: Yes Hernia present (ventral periumbilical hernia) : Scrotum: inguinal hernia on the right Assessment and Plan Assessment and plan (1) Ventral hernia: Code(s): K43.9 - Ventral hernia without obstruction or gangrene Status: Acute Assessment and Plan: Since last being seen in office, patient now has right groin pain and I was able to palpate a right inguinal hernia. Will change plans for hernia repair to fix both the ventral periumbilical hernia and the right inguinal hernia. I have recommended laparoscopic right ingui
[2020-08-11] MEDS: ceFAZolin 2 GM/D5W 50 ML 2 GM/50 ML BAG IVPB (11:18)
[2020-08-11] MEDS: BUPIVACAINE HCL 0.5% PF 30 ML VIAL INFILTRATE (12:04)
--- NOTE | 2020-08-11 13:23 | PM.PROC ---
Procedure Note - Detailed Date of procedure: 08/11/20 Pre-op diagnosis: Ventral hernia, right inguinal hernia Post-op diagnosis: same ([employer] RIH, ventral periumbilical hernia) Procedure performed: 1. Open ventral hernia repair with Parietex ventral patch 2. Laparoscopic right inguinal hernia repair with Progrip mesh, da Ursula assisted Description of procedure: Procedure as well as risks, benefits, and alternatives were discussed with the patient. Written consent was obtained and placed in chart prior to procedure. Patient was brought back to surgical suite. He was placed supine on operating table. Time-out was done to confirm patient and procedure. He was then intubated by Anesthesia Department. His abdomen was prepped and draped in sterile fashion using chlorhexidine prep. 0.5% bupivacaine with epinephrine was infiltrated at each location for incision. A 12 millimeter transverse incision was made just superior to the umbilicus using a 15 blade scalpel. Blunt dissection was carried out down to the linea alba. A vertical incision was made at the linea alba using a 15 blade scalpel. The peritoneum was then bluntly entered. A 12 millimeter trocar was inserted and carbon dioxide insufflation was used to create a pneumoperitoneum. A camera was inserted and the abdominal cavity was inspected. The patient was placed in slight Trendelenburg position. An 8 millimeter incision was made on the right lateral abdomen and an 8 millimeter trocar was inserted under direct visualization. Another 8 millimeter incision was made in the left lateral abdomen and an 8 millimeter trocar was inserted under direct visualization. The robotic arms were brought up to the patient's bedside and secured to the ports. The camera and instruments were inserted. I then moved over to the robotic console and took control of the camera and instruments. After careful inspection of the abdominal cavity, I began scoring the peritoneum along the [] lower quadrant using scissors with electrocautery. The preperitoneal plane was entered and this was carefully dissected caudally along the inferior epigastric vessels. Careful dissection with scissors with electrocautery and blunt dissection was used to continue this dissection. I dissected far enough laterally to allow for mesh placement, and also dissected medially to identify the pubic arch and Gregory's ligament. The hernia sac was identified and carefully dissected posteriorly. The cord contents were also identified and the peritoneum was carefully dissected far enough posteriorly to allow for mesh placement. Once an adequate pocket was created, I then placed the mesh within the preperitoneal pocket and carefully unfolded it. The mesh was centered on the hernia defect with adequate overlap circumferentially. The inferior edge of the mesh was inspected to ensure that it was far enough away from the peritoneal edge. The mesh appeared in proper position overlying the entire myopectineal orifice. The peritoneum was then closed over the mesh using a 3-0 V-lock running absorbable suture. The robotic instruments were removed. The robotic arms were disengaged from the ports and moved away from the bedside. The patient was flattened out in bed, the ports were removed under direct visualization, and the pneumoperitoneum was released. The umbilical incision was then extended to about 4 cm in a curvilinear fashion just superior to the umbilicus. Electrocautery was used for careful dissection down through the subcutaneous fat to identify the linea alba and the surrounding fascia around the hernia. There is a ventral hernia just superior to the umbilicus was not protruding of the umbilical skin. The hernia sac was carefully dissected free from the umbilical stalk using electrocautery and the umbilical stalk was lifted off of the linea alba using electrocautery. The hernia sac was then excised and discarded. A preperitoneal pocket was then created circum
[2020-08-11] MEDS: oxyCODONE HCL (*CRX) 5 MG TAB IR PO (14:44)
== END 2020-08-11 15:25 | disposition home or self-care (01) ==
PROVIDERS: PCP Family Medicine; Visit Provider Surgery
PROC: (CPT 49560; principal; 2020-08-11 09:30)
DX: K43.9 Ventral hernia without obstruction or gangrene (principal); K40.90 Unilateral inguinal hernia, without obstruction or gangrene, not specified as recurrent; I10 Essential (primary) hypertension; E78.2 Mixed hyperlipidemia; I25.10 Atherosclerotic heart disease of native coronary artery without angina pectoris; M54.5 Low back pain; G89.29 Other chronic pain; Z79.82 Long term (current) use of aspirin; Z79.891 Long term (current) use of opiate analgesic; Z95.5 Presence of coronary angioplasty implant and graft; F12.90 Cannabis use, unspecified, uncomplicated
CPT/HCPCS: 49560; 49568; 49650; S2900; A9270; C1781; J0330; J0690; J1100; J1885; J2250; J2370; J2405; J2704; J2710; J3010; J7120

== ENCOUNTER 2020-09-04 10:25 | Outpatient (CLI) | payer BC, MEDICARE, SELFPAY ==
--- NOTE | ~2020-09-04 | XR_ITS ---
EXAMINATION: XR small bowel follow through EXAM DATE: 09/04/2020 11:56 INDICATION: Unintentional weight loss . TECHNIQUE: KUB radiograph was acquired. Small bowel series was performed with thin barium solution. Spot images of the terminal ileum were acquired. The DAP for this procedure was 100 Gycm2. Correla tion is made to CT abdomen pelvis 07/14/2020. FINDINGS: KUB: There is expected amount of colonic stool and gas. No small bowel dilation, nonobstructive bow el gas pattern. Probable small bilateral nephrolithiasis. There is no organomegaly suspected. Mil d lumbar levoscoliosis. L5-S1 interbody fusion. Small bowel exam: Ileal and jejunal fold patterns are normal. There is no small bowel wall thickeni ng or mass effect displacing small bowel. There are no intraluminal filling defects identified. The re is no small bowel dilation. Terminal ileum is normal in appearance. Contrast reached the colon b etween the 30 and 45 minute images, normal transit time. IMPRESSION: Small bilateral nephrolithiasis. Unremarkable small bowel. Reviewed, dictated and finalized at location A. ESSOR OF GENETICS
== END 2020-09-04 10:26 | disposition home or self-care (01) ==
PROVIDERS: PCP Family Medicine; Visit Provider Internal Medicine Gastroenterology
DX: R63.4 Abnormal weight loss (principal)
CPT/HCPCS: 74250

== ENCOUNTER 2020-09-11 13:47 | Outpatient (CLI) | payer BC, MEDICARE, SELFPAY ==
--- NOTE | ~2020-09-11 | CT_ITS ---
EXAMINATION: CT abdomen pelvis wo/w con DATE: 09/11/2020 14:59 INDICATION: Microscopic hematuria TECHNIQUE: Computed tomography (CT) of the abdomen and pelvis was performed without and with 130 cc O mnipaque 350 intravenous contrast. The dose-length product was 2508.90 mGy-cm. Automated exposure con trol and iterative reconstruction technique were employed. COMPARISON: CT dated 07/14/2020 FINDINGS: Lung bases are unremarkable. Heart size normal. No significant pleural or pericardial effus ion. There are nonobstructing bilateral renal stones. There is atherosclerosis. Bladder wall is mildl y thickened. Ureters are normal in course and caliber. There are right renal cysts. There is fluid an d soft tissue in the umbilicus and right inguinal region, possibly from previous hernia repair. Corre late clinically. Nonobstructive bowel gas pattern. Gallbladder is present. No lymphadenopathy. There is prosthetic disc device at L5-S1. Mild thoracic spondylosis. The appendix is normal caliber and con tains fecaliths. IMPRESSION: 1. Nonobstructing bilateral nephrolithiasis. 2: Fluid and soft tissue in the umbilicus and right inguinal location, likely from previous hernia re pair. Correlate clinically. 3: Thickened bladder wall which may be due to enlarged prostate gland with bladder outlet obstructio n or cystitis. Reviewed, dictated and finalized at location A. NING AND DEVELOPMENT MANAGER IMPRESSION: 1. Nonobstructing bilateral nephrolithiasis. 2: Fluid and soft tissue in the umbilicus and right inguinal location, likely f rom previous hernia repair. Correlate clinically. 3: Thickened bladder wall which may be due to enlarged prostate gland with denis dder outlet obstruction or cystitis.
--- NOTE | ~2020-09-11 | XR_ITS ---
XR abdomen/kub 1V 09/11/2020 14:06 Indication: Hematuria Procedure: KUB Comparison: 03/27/2019 Findings: There are multiple bilateral renal stones. There are pelvic phleboliths which are stable. T here is fusion at L5-S1. Bowel pattern is nonobstructive. Impression: 1: Bilateral nephrolithiasis. Reviewed, dictated and finalized at location A. ORMANCE INSTRUCTOR Impression: 1: Bilateral nephrolithiasis.
[2020-09-11 14:37] LABS: Estimated Glomerular Filt Rate > 60
== END 2020-09-11 13:48 | disposition home or self-care (01) ==
PROVIDERS: PCP Family Medicine; Visit Provider Urology
DX: R31.29 Other microscopic hematuria (principal); N20.0 Calculus of kidney
CPT/HCPCS: 74018; 74178; Q9967

== ENCOUNTER 2021-01-01 11:04 | Outpatient (CLI) | payer BC, MEDICARE, SELFPAY ==
--- NOTE | ~2021-01-01 | XR_ITS ---
EXAMINATION: XR lumbar spine 2-3V DATE: 01/01/2021 11:22 INDICATION: Low back pain TECHNIQUE: Anteroposterior and lateral views of the lumbar spine, and cone-down lateral view of the l umbosacral junction were obtained. COMPARISON: CT, 09/11/2020 FINDINGS: An interbody device is present at L5-S1. The vertebral body heights and alignment are heidi l. There is mild loss of intervertebral disc space height at L3-4 and L4-5. There is no fracture. Mod erate facet osteoarthritis is noted at L5-S1. There is calcified atherosclerosis. Phleboliths are not ed in the pelvis. The bowel gas pattern is normal. There is a moderate volume of colonic stool. IMPRESSION: 1. Mild lumbar spondylosis with anterior interbody device at L5-S1 without acute findings. Reviewed, dictated and finalized at location B. IMPRESSION: 1. Mild lumbar spondylosis with anterior interbody device at L5-S1 without acut e findings.
== END 2021-01-01 11:05 | disposition home or self-care (01) ==
LOC: ANHIMG 11:08
PROVIDERS: PCP Family Medicine; Visit Provider Nurse Practitioner Family
DX: M47.896 Other spondylosis, lumbar region (principal)
CPT/HCPCS: 72100

== ENCOUNTER 2021-08-16 13:50 | Outpatient (CLI) | payer BC, MEDICARE, SELFPAY ==
--- NOTE | 2021-08-19 12:08 | WPDHOLTEREM ---
Holter/Event Monitor Holter/Event Monitor Date of procedure: 08/16/21 Holter/Event Procedure: 24 Hr Holter Monitor Indications: Arrhythmias Conclusion: 1. 24 hour holter monitor on 08/16/21. 2. Underlying rhythm is sinus rhythm. HR range 40-124 bpm; average HR 66 bpm. 3. There are 116 premature supraventricular complexes, 5 supraventricular couplets and 1 supraventricular triplet. No supraventricular tachycardia. 4. There are 2,842 premature ventricular complexes, 5 ventricular couplets, 1 ventricular triplet, 224 ventricular bigeminy and 1,413 ventricular trigeminy. No ventricular tachycardia. 5. No sinoatrial or atrioventricular blocks. One episode of pause at 2.1 seconds at 01:22. 6. Patient reports symptoms of chest pain, tired, heart beating which demonstrate sinus rhythm, HR range 60-112 bpm and most episodes with PVC's.
== END 2021-08-16 13:51 | disposition home or self-care (01) ==
PROVIDERS: PCP Family Medicine; Visit Provider Family Medicine
DX: I49.9 Cardiac arrhythmia, unspecified (principal)
CPT/HCPCS: 93225; 93226

== ENCOUNTER 2022-06-10 11:19 | Outpatient (CLI) | payer BC, MEDICARE, SELFPAY ==
--- NOTE | ~2022-06-10 | XR_ITS ---
XR abdomen/kub 1V DATE: 06/10/2022 11:48 INDICATION: Bilateral kidney stones TECHNIQUE: 2 supine AP views COMPARISON: 09/11/2020 CT abdomen pelvis FINDINGS: There is suggestion of at least 2 and possibly more calcifications of the right kidney and multiple calcifications of the left kidney consistent with bilateral nephrolithiasis. No obvious uret eral calcified calculus. There are bilateral pelvic phleboliths. The psoas shadows are intact. No visceromegaly is evident. No evidence of bowel obstruction. There is moderately prominent of fecal material in the rectosigmoid area and ascending and transverse colon. IMPRESSION: Bilateral nephrolithiasis Reviewed, dictated and finalized at Location A. Reviewed, dictated and finalized at location A. IMPRESSION: Bilateral nephrolithiasis
== END 2022-06-10 11:20 | disposition home or self-care (01) ==
PROVIDERS: PCP Family Medicine; Visit Provider Urology
DX: N20.0 Calculus of kidney (principal)
CPT/HCPCS: 74018

== ENCOUNTER 2023-02-06 09:18 | Outpatient (CLI) | payer BC, MEDICARE, SELFPAY ==
--- NOTE | 2023-02-06 | ECG_ITS ---
Measurements Intervals [place] Rate: 73 P: 69 MO: 174 QRS: -30 QRSD: 115 T: 12 QT: 381 QTc: 423 Interpretive Statements SINUS RHYTHM ATRIAL AND VENTRICULAR PREMATURE COMPLEXES INTRAVENTRICULAR CONDUCTION DELAY DELAYED PRECORDIAL R/S TRANSITION BORDERLINE T WAVE ABNORMALITY- INFERIOR LEADS BORDERLINE ECG COMPARED TO ECG 02/04/2020 17:27:46 NO SIGNIFICANT CHANGES Electronically Signed On 02-06-2023 10:56:37 CDT by Aric Schrader D.O.
[2023-02-06 11:07] LABS: Basophils Percent Auto 0.5 % (0.2-1.2); Eosinophils Absolute Auto 0.1 K/mm3 (0-0.3); Eosinophils Percent Auto 1.8 % (0-4.4); Hematocrit 43.6 % (42.0-52.0); Hemoglobin 14.4 g/dL (14.0-18.0); Immature Granulocyte Absolute 0.01 K/mm3 (0.00-0.031); Immature Granulocyte Percent A 0.1 % (0-0.5); Lymphocytes Absolute Auto 1.29 K/mm3 (0.9-3.2); Mean Corpuscular Hemoglobin 30.8 pg (26-34); Mean Corpuscular Volume 93.4 fl (80-100); Mean Platelet Volume 11.8 fl (7.4-10.4); Monocytes Absolute Auto 0.8 K/mm3 (0.1-0.6); Monocytes Percent Auto 9.9 % (2.6-8.5); Neutrophils Absolute Auto 5.4 K/mm3 (1.3-6.7); Neutrophils Percent Auto 70.7 % (45.5-73.1); Platelet Count Result 157 k/mm3 (150-375); Red Blood Count 4.67 M/mm3 (4.6-6.20); Red Cell Distribution Width 12.8 % (11.5-14.5); White Blood Count 7.6 K/mm3 (4.5-10.0)
[2023-02-06 11:17] LABS: Appearance Urine Clear (Clear); Bacteria Urine None Seen /hpf; Bilirubin Urine Negative (Negative); Blood Urine Negative (Negative); Color Urine Yellow (Yellow); Glucose Urine UA Negative (Negative); Ketones Urine Negative (Negative); Leukocyte Esterase Ur 1+ LEU/UL (Negative); Nitrate Urine Negative (Negative); Protein Urine Negative (Negative); RBC Urine 0-2 /hpf (0-2); Specific Grav Ur 1.016 (1.001-1.035); Squamous Epithelial Cell Urine None seen /hpf (Few); Urobilinogen Urine 0.2 mg/dL (<2.0); WBC Urine 0-5 /hpf; pH Urine 5.5 (5.0-9.0)
[2023-02-06 11:25] LABS: Alanine Aminotransferase 24 U/L (6-50); Albumin Level 4.1 g/dL (3.5-5.1); Alkaline Phosphatase 62 U/L (38-126); Anion Gap 8 mmol/L (8-16); Aspartate Amino Transferase 33 U/L (17-59); Bilirubin,Total 0.5 mg/dL (0.2-1.3); Blood Urea Nitrogen 17 mg/dL (9-20); CRP < 0.5 mg/dL (<1.0); Calcium 8.8 mg/dL (8.4-10.2); Carbon Dioxide 27 mmol/L (22-30); Chloride 104 mmol/L (98-107); Estimated Glomerular Filt Rate > 60; Glucose 86 mg/dL (65-110); Sodium 139 mmol/L (137-145)
[2023-02-06 11:54] LABS: Erythrocyte Sedimentation Rate 5 mm/hr (0-20)
[2023-02-06 11:55] LABS: Add Urine Microscopic? YES
== END 2023-02-06 09:19 | disposition home or self-care (01) ==
LOC: ANHLAB 09:22
PROVIDERS: PCP Family Medicine; Visit Provider Nurse Practitioner Family
DX: Z01.818 Encounter for other preprocedural examination (principal); I45.9 Conduction disorder, unspecified
CPT/HCPCS: 36415; 80053; 81001; 85025; 85652; 86140; 93005

== ENCOUNTER 2023-08-22 08:52 | Outpatient (CLI) | payer MEDICARE, SELFPAY ==
--- NOTE | ~2023-08-22 | XR_ITS ---
Supine and upright views of the abdomen Clinical history: Kidney stones COMPARISON: 06/10/2022 Findings: Bowel gas pattern is nonspecific. No evidence for obstruction or free air. Bilateral renal stones are present, probably mildly increased in size in the right side in particular. Largest stone measures approximately 9 mm. Osseous structures are intact. Neurostimulator device present in the pel vis. Impression: Bilateral nephrolithiasis, as above. Neurostimulator device. Reviewed, dictated and finalized at location M. CH RANGE OPERATOR Impression: Bilateral nephrolithiasis, as above. Neurostimulator device.
== END 2023-08-22 08:53 | disposition home or self-care (01) ==
PROVIDERS: PCP Family Medicine; Visit Provider Nurse Practitioner Family
DX: N20.0 Calculus of kidney (principal); Z96.82 Presence of neurostimulator
CPT/HCPCS: 74018

== ENCOUNTER 2023-09-01 13:30 | Outpatient (CLI) | payer MEDICARE, SELFPAY ==
--- NOTE | ~2023-09-01 | CT_ITS ---
EXAMINATION: CT abdomen pelvis wo con DATE: 09/01/2023 13:47 INDICATION: Right renal stone. TECHNIQUE: Computed tomography (CT) of the abdomen and pelvis was performed without intravenous contr ast. Automated exposure control and iterative reconstruction technique were employed. The dose-length product was 1286.33 mGy-cm. COMPARISON: CT abdomen and pelvis 09/11/2020 FINDINGS: The visualized portions of the lung bases demonstrate mild atelectasis. There is mild scarr ing in paraspinal right lower lobe. No pleural effusion. The heart size is normal. There are coronary artery calcifications. No pericardial effusion. There is a small sliding hiatal hernia. The liver, g allbladder, spleen, pancreas, and adrenal glands are normal. There is a 2.2 cm cyst in right kidney. There are 6 stones in right kidney measuring up to 9 mm. There are 5 stones in left kidney measuring up to 4 mm. There is chronic diffuse bladder wall thickening, which may secondary to chronic outlet o bstruction from the moderately enlarged prostate. There are no dilated loops of bowel. The appendix i s normal. Aortic atherosclerosis is noted. There are no pathologically enlarged lymph nodes. There is no free intraperitoneal fluid. There is mild chronic anterior wedging of multiple vertebral bodies. There are changes of anterior fusion procedure at L5-S1. There are multiple epidural wires in the lum bosacral region. IMPRESSION: 1. Bilateral nonobstructing kidney stones. Reviewed, dictated and finalized at location E. HERS' AIDE
== END 2023-09-01 13:31 | disposition home or self-care (01) ==
PROVIDERS: PCP Family Medicine; Visit Provider Nurse Practitioner Family
DX: N20.0 Calculus of kidney (principal)
CPT/HCPCS: 74176

== ENCOUNTER 2023-09-19 08:26 | Outpatient (CLI) | payer MEDICARE, SELFPAY ==
[2023-09-19 09:09] LABS: Prothrombin Time 13.6 Seconds (11.1-14.7)
[2023-09-19 09:10] LABS: Partial Thromboplastin Time 27.4 SECONDS (22.3-36.8)
== END 2023-09-19 08:27 | disposition home or self-care (01) ==
LOC: ANHSURGERY 08:29
PROVIDERS: PCP Family Medicine; Visit Provider Urology
DX: N20.0 Calculus of kidney (principal); Z01.818 Encounter for other preprocedural examination
CPT/HCPCS: 36415; 85610; 85730; 87086

== ENCOUNTER 2023-09-29 02:40 | Day surgery (SDC) | payer MEDICARE, SELFPAY ==
[2023-09-15 14:13] VITALS: BMI 32.2
--- NOTE | 2023-09-15 14:46 | PC.NURSE ---
Report to the Outpatient Waiting Room, entrance under the green pavilion located off [facility], at time __6:30AM on date ___09/29/23____. Planned Procedure Time: __8:30AM . Time changes happen often and if your time is changed the preop area will call you the afternoon before. - You and your visitor will be asked to self-screen and do not enter if you have any COVID symptoms. - A mask is optional within the hospital at this time. Patients may have clear liquids (water, carbonated beverages, clear teas, apple juice) until 3 hours prior to surgery with a maximum of 20 ounces. - No food from midnight until time of surgery. Take the following medications with a SIP of water the morning of surgery: __AMLODIPINE, PREGABALIN DO NOT STOP ANY OF YOUR OTHER PRESCRIPTION MEDICATIONS PRIOR TO SURGERY ?EXCEPT THE FOLLOWING Medications to discontinue per physician ___HOLD ASPIRIN 7 DAYS PRE-OP PER DR GUERRA- LAST DOSE 09/25/23. HOLD ALL VITAMINS/SUPPLEMENTS 3 DAYS PRE-OP PER ANESTHESIA- LAST DOSE 09/21/23. Please no make-up, nail german, hairspray, perfume, deodorant, or body powder the day of surgery. No jewelry (including any body piercings) or valuables the day of surgery, leave them at home. Please take a shower or bath the night before, or the morning of, surgery with an antibacterial soap. Wear comfortable, loose fitting clothing. - Jewelry must be removed prior to entering the operating room. Rings and piercings that are not removed may be cut off. - The hospital will not accept responsibility for valuables. - Please leave all valuables, including medications, at home the day of surgery. If you are going home after surgery, a licensed commercial driver's license driver must drive you home. - NO public transportation without another adult if you receive anesthesia. - We recommend that an adult stay with you for 24 hours following discharge. - We also recommend that you do not drive, make important decision, drink alcoholic beverages, or take any drugs that were not prescribed by your health care provider for at least 24 hours after your discharge time. Follow any additional instructions given to you from your surgeon. If you or anyone in your household have experienced Covid symptoms in the past week, please notify your surgeon or the nurse liaison at the phone number below for possible testing. Telephone instructions given to ____PATIENT and asked if any additional questions and then verbalized understanding. Patient advised to call surgeon office or pre surgery nurse liaison [phone] if any additional questions.
--- NOTE | 2023-09-21 07:24 | PM.HPGS ---
History of Present Illness History of Present Illness Consent: Risks, benefits, and alternatives have been discussed and questions answered. Patient agrees to proceed with procedure. Chief complaint: right renal stone Narrative: Sunil Milian is a 68 year old male has been followed in our practice for several years. He was recently seen in follow-up for BPH which is managed with combination therapy consisting of tamsulosin and finasteride. He was also found to have micro hematuria. He has a history of urolithiasis and had a sense of recurrent stones. Renal CT and KUB shows bilateral stones measuring up to 9 mm in the right kidney. After discussion of options he elects for right ESWL. Hhe is aware the risk including, but not limited to, adverse cardiopulmonary events, hematuria, perinephric hematoma and need for additional procedures. Review of Systems Cardiovascular: Cardiovascular: Denies chest pain, Denies lightheadedness, Denies palpitations and Denies dyspnea Respiratory: Respiratory: Denies dyspnea Gastrointestinal: Gastrointestinal: Denies diarrhea, Denies nausea and Denies vomiting Genitourinary: Genitourinary: Denies hematuria and Denies dysuria Endocrine: Endocrine: Denies palpitations [facility] Past Medical History Medical History Benign essential hypertension BMI 25.0-25.9,adult BMI 29.0-29.9,adult BMI 31.0-31.9,adult BMI greater than 30 CAD (coronary artery disease) Chronic low back pain Chronic, continuous use of opioids CRPS (complex regional pain syndrome) Heart disease History of kidney stones Irritable heart syndrome Mixed hyperlipidemia Surgical History Surgical History Fatigue History of back surgery History of coronary artery stent placement 1997 History of foot surgery left foot History of umbilical hernia repair Open ventral hernia repair with Parietex ventral patch Open ventral hernia repair with Parietex ventral patch 2. Laparoscopic right inguinal hernia repair with Progrip mesh, da Ursula assisted S/P insertion of spinal cord stimulator Family History Family History Sibling Family history of schizophrenia Family history of suicide Diabetes mellitus Father Hypertension Family history of diabetes mellitus in first degree relative Family history of heart disease in male family member before age 55 Family history of type 2 diabetes mellitus Diabetes mellitus Mother Hypertension Cerebrovascular accident Sibling Hypertension Diabetes mellitus Sibling , suicide No problems noted. Social History Social History Smoking packs per day: 1 Smoking cigarettes per day: 20.0 Years smoked: 1 Smoking pack-years: 1.00 Smoking status: Never smoker Tobacco type: cigarettes Second hand tobacco smoke exposure: No Alcohol intake: former Alcohol use details: SOCIAL DRINKER, NONE RECENTLY Substance use: current Substance use type: marijuana Other substance usage details: MEDICAL MARIJUANA SEVERAL TIMES/DAY FOR NERVE PAIN Do You Feel Safe in your Home?: Yes Lack of Transportation: No Lack of Food: Never True Current Housing: I Have Housing Concerned About Future Housing: No Difficulty Paying Gas/Electric Bills: No Difficulty Paying for Meds: No Currently Unemployed: No Education: Bachelor's Degree Living arrangements: with family Additional living arrangements comments: Occupation/Education: retired 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
[2023-09-29] VITALS (7 sets, daily range): BP systolic 127–158; BP diastolic 63–90; PULSE 55–75; RESP 12–20; TEMP 36.3–37.1; O2SAT 93–98
--- NOTE | ~2023-09-29 | XR_ITS ---
EXAMINATION: XR abdomen/kub 1V INDICATION: Right renal stone TECHNIQUE: Supine views of the abdomen were obtained on three radiographs. COMPARISON: 08/22/2023 FINDINGS: A 7 mm stone projects in the proximal right ureter at the level of the right L3 transverse process. There are at least four stones identified in the right kidney which measure up to 5 mm. Thre e stones measuring 3 mm are noted in the left kidney. No stones are identified in the urinary bladder . There are phleboliths of the pelvis. A neurostimulator device projects in the left midabdomen with its leads over the lower lumbar spine. The visualized lung bases are clear. IMPRESSION: 1. 7 mm stone of the proximal right ureter. 2. Bilateral nephrolithiasis. Reviewed, dictated and finalized at location B. UTER TECHNICIAN
--- NOTE | 2023-09-29 06:10 | WPDHPUPDATE1 ---
History and Physical Update Update Date/Time: 09/29/23 06:10 History and Physical has been reviewed, including an updated exam of the patient. There are NO changes in the patient's condition. Risks, benefits, and alternatives have been discussed and questions answered. Patient agrees to proceed with procedure.
[2023-09-29] MEDS: LACTATED RINGERS 1,000 ML 30 ML IV CONT (07:15)
--- NOTE | 2023-09-29 08:14 | WPDANESEPPF ---
Anes - Initial Pre Proc Eval Procedure: Operation Date: 09/29/23 08:30 Proposed Procedures p Right Extracorporeal Shock Wave Lithotripsy - Kevin Arhsad MD Date/Time: 09/29/23 08:14 Surgeon: Kevin Arshad MD Pre Op Diagnosis: right renal stone Patient Data Age: 68 Gender: M Height: 1.88 m Weight: 112.3 kg Last Vital Signs Temp 37.1 C 09/29/23 07:02 Pulse 75 09/29/23 07:02 Resp 20 09/29/23 07:02 BP 158/63 H 09/29/23 07:02 Pulse Ox 93 09/29/23 07:02 O2 Del Method Room Air 09/29/23 07:02 Allergies Allergy/AdvReac Type Severity Reaction Status Date / Time No Known Allergies Allergy Mild Verified 09/15/23 14:06 Home Medications Medication Instructions Recorded Confirmed Type metaxalone 800 mg tablet (Metaxall) 800 mg PO TID PRN Spasms 08/26/19 09/29/23 History pregabalin 150 mg capsule (Lyrica) 150 mg PO BID 05/19/20 09/29/23 History tamsulosin 0.4 mg capsule (Flomax) 0.4 mg PO HS 05/19/20 09/29/23 History pantoprazole 40 mg tablet,delayed 40 mg PO EVERY OTHER DAY 08/10/21 09/29/23 History release amlodipine 10 mg tablet 10 mg PO QAM 11/30/21 09/29/23 History atorvastatin 80 mg tablet (Lipitor) 80 mg PO DAILY 08/14/23 09/29/23 History aspirin 81 mg tablet,delayed 81 mg PO DAILY 09/15/23 09/29/23 History release benazepril 10 mg tablet 10 mg PO QAM 09/15/23 09/29/23 History Patient hx anesthesia problems: none Family hx anesthesia problems: none Results Review: All pre-operative results and documents have been reviewed as part of the pre-operative evaluation. [facility] Past Medical History Medical History Benign essential hypertension BMI 25.0-25.9,adult BMI 29.0-29.9,adult BMI 31.0-31.9,adult BMI greater than 30 CAD (coronary artery disease) Chronic low back pain Chronic, continuous use of opioids CRPS (complex regional pain syndrome) Heart disease History of kidney stones Irritable heart syndrome Mixed hyperlipidemia Surgical History Surgical History Fatigue History of back surgery History of coronary artery stent placement 1998 History of foot surgery left foot History of umbilical hernia repair Open ventral hernia repair with Parietex ventral patch Open ventral hernia repair with Parietex ventral patch 2. Laparoscopic right inguinal hernia repair with Progrip mesh, da Ursula assisted S/P insertion of spinal cord stimulator Family History Family History Sibling Family history of schizophrenia Family history of suicide Diabetes mellitus Father Hypertension Family history of diabetes mellitus in first degree relative Family history of heart disease in male family member before age 55 Family history of type 2 diabetes mellitus Diabetes mellitus Mother Hypertension Cerebrovascular accident Sibling Hypertension Diabetes mellitus Sibling , suicide No problems noted. Social History Social History Smoking packs per day: 1 Smoking cigarettes per day: 20.0 Years smoked: 1 Smoking pack-years: 1.00 Smoking status: Never smoker Tobacco type: cigarettes Second hand tobacco smoke exposure: No Alcohol intake: former Alcohol use details: SOCIAL DRINKER, NONE RECENTLY Substance use: current Substance use type: marijuana Other substance usage details: MEDICAL MARIJUANA SEVERAL TIMES/DAY FOR NERVE PAIN Do You Feel Safe in your Home?: Yes Lack of Transportation: No Lack of Food: Never True Current Housing: I Have Housing Concerned About Future Housing: No Difficulty Paying Gas/Electric Bills: No Difficulty Paying for Meds: No Currently Unemployed: No Education: Bachelor's Degree Living arrangements: with family Additional living arr
[2023-09-29] MEDS: ceFAZolin 2 GM/D5W 50 ML 2 GM/50 ML BAG IVPB (08:29)
--- NOTE | 2023-09-29 09:04 | W.PM.PROC2 ---
Procedure Note - Detailed Date of Procedure 09/29/23 Pre-op Diagnosis Right renal stones Post-op Diagnosis Same Procedure Performed Right ESWL Surgeon Kevin Arshad MD Anesthesia General Description of Procedure The patient was brought to the operative suite where he was placed in the supine position on the Dornier lithotripsy table. The focal point of the lithotripter was placed at a 6mm right renal pelvic calculus. A total of 2500 shocks were delivered at a power setting of 3. Patient had 2 additional small right renal stones in the periphery of the collecting system that we opted not to treat given the position of this larger stone either in his renal pelvis or at his UPJ.There appeared to be good fragmentation of the stone. The patient tolerated the procedure well and was taken to the recovery room in good condition. Drains No Packing No Pathology None sent Complications No immediate complications
== END 2023-09-29 11:07 | disposition home or self-care (01) ==
PROVIDERS: PCP Family Medicine; Visit Provider Urology
PROC: (CPT 50590; principal; 2023-09-29 08:30)
DX: N20.0 Calculus of kidney (principal); I25.10 Atherosclerotic heart disease of native coronary artery without angina pectoris; I11.9 Hypertensive heart disease without heart failure; E78.2 Mixed hyperlipidemia; M54.50 Low back pain, unspecified; G89.29 Other chronic pain; Z95.5 Presence of coronary angioplasty implant and graft; F12.90 Cannabis use, unspecified, uncomplicated; Z79.82 Long term (current) use of aspirin
CPT/HCPCS: 50590; 36415; 74018; 85610; 85730; 87086; J0690; J1100; J2405; J2704; J3010; J7120

== ENCOUNTER 2023-10-11 15:23 | Outpatient (CLI) | payer MEDICARE, SELFPAY ==
--- NOTE | ~2023-10-11 | XR_ITS ---
EXAMINATION: XR abdomen/kub 1V DATE: 10/11/2023 15:41 INDICATION: Calculus of kidney. TECHNIQUE: A supine view of the abdomen on 2 radiographs was obtained. COMPARISON: CT abdomen and pelvis 09/01/2023 FINDINGS: There are no dilated loops of bowel. There are 4 stones in right kidney measuring up to 8 m m. There are 3 stones in left kidney measuring up to 5 mm. There are phleboliths in the pelvis. Elect rodes overlie the lumbosacral region. IMPRESSION: 1. Bilateral kidney stones. Reviewed, dictated and finalized at location E. FACTURING LAB TECHNICIAN IMPRESSION: 1. Bilateral kidney stones.
== END 2023-10-11 15:24 | disposition home or self-care (01) ==
PROVIDERS: PCP Family Medicine; Visit Provider Urology
DX: N20.0 Calculus of kidney (principal)
CPT/HCPCS: 74018

== ENCOUNTER 2024-04-22 13:57 | Outpatient (CLI) | payer MEDICARE, SELFPAY ==
--- NOTE | ~2024-04-22 | XR_ITS ---
XR abdomen/kub 1V Ordering provider: Kevin Arshad MD History: . RIGHT URETERAL STONE, FOLLOW UP . Comparison: October 11, 2023 FINDINGS: BOWEL: Nonobstructive bowel gas pattern. ORGANOMEGALY: None. SIGNIFICANT PATHOLOGIC CALCIFICATIONS: Right kidney stones seen. Highly suggestive left kidney stone . Metastasis overlapping the left kidney. OTHER: No free air is seen under the diaphragm. Spinal stimulator is seen in the left side of the abdomen. IMPRESSION: NO ACUTE ABDOMINAL FINDINGS. Right kidney stone. Possible left kidney stone. No definite ureteric stones seen. Reviewed, dictated and finalized at location A. IMPRESSION: NO ACUTE ABDOMINAL FINDINGS. Right kidney stone. Possible left kidney stone. No definite ureteric stones see n.
== END 2024-04-22 13:58 | disposition home or self-care (01) ==
PROVIDERS: PCP Family Medicine; Visit Provider Urology
DX: N20.1 Calculus of ureter (principal)
CPT/HCPCS: 74018